=== PATIENT | female | born 1940 | race Caucasian/White ===

== ENCOUNTER 2016-12-04 17:39 | Emergency (ER) | payer MEDICARE, OTHER ==
--- NOTE | 2016-12-04 20:45 | RAD ---
Exam: Three-view left hand COMPARISON: None INDICATION: Left palm laceration from broken glass. Findings: PA, lateral and oblique views of the left hand were obtained. Patient was unable to move the ring for the exam. No apparent soft tissue swelling. No radiopaque foreign body us identified. Diffuse bony osteopenia. No acute fractures identified. There are scattered changes of osteoarthritis most pronounced within the fifth PIP joint and interphalangeal joint of the thumb. IMPRESSION: No opaque foreign body or acute osseous abnormality in the left hand.
== END 2016-12-04 21:01 | disposition home or self-care (01) ==
LOC: ED 17:39
DX: S61.412A Laceration without foreign body of left hand, initial encounter (principal); W25.XXXA Contact with sharp glass, initial encounter; Y93.9 Activity, unspecified; Y92.009 Unspecified place in unspecified non-institutional (private) residence as the place of occurrence of the external cause